=== PATIENT | male | born 1975 | race Two or more races ===

== ENCOUNTER 2018-11-21 12:57 | Emergency (ER) | payer OTHER ==
[~2018-11-21] VITALS: Ht 182.9 cm; Wt 140.6 kg
[2018-11-21 13:12] VITALS: BP 119/81
[2018-11-21] MEDS ORDERED: GLIPIZIDE5 MG ORAL (13:17)
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
[2018-11-21] MEDS ORDERED: Methocarbamol 500mg tab ORAL ONE (13:45)
--- NOTE | 2018-11-21 13:50 | NUR ---
ED Nurse Note: PT. TAKEN DOWN TO CT
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
--- NOTE | 2018-11-21 14:47 | Diagnostic Imaging Report ---
Indication: Headache Technique: Contiguous 5 mm thick transaxial imaging of the head obtained in a Siemens Sensation [address] scanner. Soft tissue and bone windows generated. Automatic Exposure Control was utilized. Total Dose length Product (DLP): 1502.[address] Dose Index Volume (CTDIvol): 70.38 mGy Comparison: none Findings: The size and configuration of the cortical sulci, basal cisterns, and ventricles are within normal limits for age. There is no mass effect, midline shift, or edema identified. There is no evidence of acute hemorrhage or abnormal intra-axial or extra-axial fluid collections. The bones and soft tissues are unremarkable. Impression: No mass effect, edema or acute bleed. The CT scanner at [facility] is accredited by the [employer] and the scans are performed using dose optimization techniques as appropriate to a performed exam including Automatic Exposure control.
--- NOTE | 2018-11-21 15:01 | Diagnostic Imaging Report ---
Indication: Neck pain. Technique: Continuous helical imaging of the cervical spine was obtained transaxially from the skull base to the upper thoracic spine. 2-D coronal and sagittal reformatted images were obtained. Automatic Exposure Control was utilized. Total Dose length Product (DLP): 572.[address] Dose Index Volume (CTDIvol): 27.41 mGy Comparison: None Findings: There is no evidence of an acute fracture or malalignment. Atlantoaxial alignment appears normal. Height and configuration of the vertebral bodies and intervertebral discs are within normal limits. Uncovertebral joints and facets are unremarkable. There is no soft tissue swelling. Impression: Negative cervical spine CT The CT scanner at [facility] is accredited by the [employer] and the scans are performed using dose optimization techniques as appropriate to a performed exam including Automatic Exposure control.
--- NOTE | 2018-11-21 15:17 | Diagnostic Imaging Report ---
Indication: left shoulder pain Findings: 3 views of the left shoulder were obtained. Alignment of the left shoulder is normal. No acute fracture is identified. Soft tissues are unremarkable. Impression: No acute injury
[2018-11-21] MEDS ORDERED: ROBAXIN500 MG PO (15:46)
[2018-11-21] MEDS ORDERED: LIDOCAINE700 M1 TP (15:46)
[2018-11-21] MEDS ORDERED: TYLENOL EXTRA500 MG ORAL (15:46)
[2018-11-21 15:50] VITALS: BP 120/74
--- NOTE | 2018-11-21 15:50 | NUR ---
ED Nurse Note: Pt. AAOX4. AMBULATORY. LEFT WITH STEADY GAIT. VSS. ID ARMBAND REMOVED. PT EDUCATION DONE REGARDING D/C INSTRUCTIONS AND PRESCRIPTION. PT. VERBALIZED THE UNDERSTANDING.
== END 2018-11-21 15:50 | disposition home or self-care (01) ==
LOC: EMR 13:40
DX: G44.309 Post-traumatic headache, unspecified, not intractable (principal); F07.81 Postconcussional syndrome; S16.1XXA Strain of muscle, fascia and tendon at neck level, initial encounter; V43.52XA Car driver injured in collision with other type car in traffic accident, initial encounter; Y92.410 Unspecified street and highway as the place of occurrence of the external cause; M25.519 Pain in unspecified shoulder; E11.9 Type 2 diabetes mellitus without complications
CPT/HCPCS: 70450; 72125; 99284